=== PATIENT | female | born 1950 | race African-American/Black ===

== ENCOUNTER 2018-02-22 04:17 | Emergency (ER) | payer MEDICAID ==
[~2018-02-22] VITALS: Ht 167.6 cm; Wt 121.0 kg
[~2018-02-22 04:17] MED LIST: CIPRO500 MG PO; DOESN'T KNOW MEDS; HYCOTUSS EXP1 ML OR; LASIX40 MG OR; LORTAB 5 OR; METFORMIN500 MG PO; PROVENTIL HFA IN; ROBITUSSIN AC10 ML PO; ZITHROMAX500 MG OR
[2018-02-22] MEDS ORDERED: LASIX20 MG PO (04:48)
[2018-02-22 04:54] VITALS: BP 158/82
== END 2018-02-22 05:00 | disposition home or self-care (01) ==
LOC: ED 04:17
DX: I10 Essential (primary) hypertension (principal); E11.9 Type 2 diabetes mellitus without complications; Z79.84 Long term (current) use of oral hypoglycemic drugs

== ENCOUNTER 2018-03-28 14:04 | Emergency (ER) | payer MEDICARE, MEDICAID ==
[~2018-03-28] VITALS: Ht 167.6 cm; Wt 130.4 kg
[~2018-03-28 14:04] MED LIST changes: +LASIX20 MG PO
[2018-03-28 14:32] LABS: HEMATOCRIT 39.2 % (37.0-47.0); HEMOGLOBIN 12.1 g/dl (12.0-16.0); IMMATURE GRANULOCYTES 0.8 % (0.0-5.0); MEAN CELL VOLUME 92.7 fL CALC (80.0-100.0); MEAN CORPUSCULAR HGB 28.6 pG CALC (26.0-32.0); MEAN CORPUSCULAR HGB CONC 30.9 g/L CALC (32.0-36.0); NEUT# 5.85 thou/uL (2.00-7.15); RED BLOOD COUNT 4.23 mill/uL (4.20-5.60); RED CELL DISTRI WIDTH 13.1 % (11.5-15.5)
[2018-03-28 15:05] LABS: ALBUMIN 3.8 g/dL (3.2-5.0); ALKALINE PHOSPHATASE 94 u/l (38-126); ANION GAP 11 (6-22 (CALC)); BILIRUBIN, TOTAL 0.5 mg/dL (0.0-1.4); BUN 21 mg/dL (8-23); BUN/CREATININE RATIO 29 (12-20 (CALC)); CARBON DIOXIDE 29 mmol/l (22-30); CHLORIDE 106 mmol/l (95-108); CREATININE 0.7 mg/dL (0.5-1.0); GFR > 60 ML/MIN (>=60 (CALC)); GFR FOR AFR.AMER. > 60 ML/MIN (>=60 (CALC)); SODIUM 142 mmol/l (137-146); TOTAL PROTEIN 7.1 g/dL (6.3-8.2)
[2018-03-28 15:11] LABS: SGOT/AST 44 u/l (9-36)
[2018-03-28 15:23] LABS: MYOGLOBIN 3 ng/mL (0 - 62)
[2018-03-28] MEDS ORDERED: POTASSIUM CHLO10 ME4 PO (15:43)
[2018-03-28] MEDS ORDERED: GABAPENTIN100 MG PO (15:44)
[2018-03-28] MEDS ORDERED: PROAIR HFA108 MCG/AC IN (15:45)
[2018-03-28] MEDS ORDERED: SYMBICORT1 AE1 IN (15:45)
[2018-03-28] MEDS ORDERED: LOSARTAN POT50 MG PO (15:46)
[2018-03-28] MEDS ORDERED: LOPRESSOR25 MG PO (15:47)
[2018-03-28] MEDS ORDERED: GLYBURIDE5 M1 PO (15:47)
[2018-03-28] MEDS ORDERED: METHOCARBAM500 MG PO (15:48)
[2018-03-28] MEDS ORDERED: DORZOLAMIDE2 % OU (15:49)
[2018-03-28 16:05] LABS: URINE BILIRUBIN - DIPSTICK NEGATIVE (NEGATIVE); URINE BLOOD DIPSTICK TRACE-INTACT (NEGATIVE); URINE COLOR YELLOW; URINE GLUCOSE - DIPSTICK 250 mg/dL (NEGATIVE); URINE KETONE NEGATIVE (NEGATIVE); URINE LEUK ESTERASE NEGATIVE (NEGATIVE); URINE NITRITE - DIPSTICK NEGATIVE (Negative); URINE PH 5.5 (4.5-8.0); URINE PROTEIN - DIPSTICK TRACE mg/dL (NEG-TRACE); URINE SPECIFIC GRAVITY >=1.030; URINE UROBILINOGEN - DIPSTICK 0.2 E.U./dL (0.2)
[2018-03-28 16:27] VITALS: BP 166/92
== END 2018-03-28 16:27 | disposition short-term general hospital (02) ==
LOC: ED 14:04
PROVIDERS: Emergency Medicine
DX: I11.0 Hypertensive heart disease with heart failure (principal); I50.9 Heart failure, unspecified; J44.1 Chronic obstructive pulmonary disease with (acute) exacerbation; R74.8 Abnormal levels of other serum enzymes; E11.9 Type 2 diabetes mellitus without complications

== ENCOUNTER → 2018-05-07 | Outpatient (REF) | payer MEDICARE, MEDICAID ==
[~2018-05-07] MED LIST changes: +DORZOLAMIDE2 % OU; +GABAPENTIN100 MG PO; +GLYBURIDE5 M1 PO; +LOPRESSOR25 MG PO; +LOSARTAN POT50 MG PO; +METHOCARBAM500 MG PO; +POTASSIUM CHLO10 ME4 PO; +PROAIR HFA108 MCG/AC IN; +SYMBICORT1 AE1 IN
[2018-05-07 11:27] LABS: BUN 20 mg/dL (8-23); CARBON DIOXIDE 28 mmol/l (22-30); CHLORIDE 103 mmol/l (95-108); CREATININE 0.7 mg/dL (0.5-1.0); GFR > 60 ML/MIN (>=60 (CALC)); GFR FOR AFR.AMER. > 60 ML/MIN (>=60 (CALC)); POTASSIUM 3.9 mmol/l (3.5-5.1); SODIUM 142 mmol/l (137-146)
== END | disposition home or self-care (01) ==
LOC: LAB 10:00
PROVIDERS: ATTEND Nurse Practitioner
DX: I50.22 Chronic systolic (congestive) heart failure (principal); Z51.81 Encounter for therapeutic drug level monitoring

== ENCOUNTER 2018-09-10 12:51 | Emergency (ER) | payer MEDICARE, MEDICAID ==
[~2018-09-10] VITALS: Ht 167.6 cm; Wt 100.0 kg
[~2018-09-10 12:51] MED LIST changes: -GABAPENTIN100 MG PO; +NEURONTIN300 MG PO
[2018-09-10] MEDS ORDERED: ASPIRIN81 MG PO (13:58)
[2018-09-10] MEDS ORDERED: CARVEDILOL6.25 MG PO (13:58)
[2018-09-10] MEDS ORDERED: ENTRESTO 24-261 TAB PO (13:59)
[2018-09-10] MEDS ORDERED: ENTRESTO 49-511 TAB PO (13:59)
[2018-09-10] MEDS ORDERED: OZEMPIC2 MG/1.5 M SC (14:01)
[2018-09-10 14:16] LABS: HEMATOCRIT 43.5 % (37.0-47.0); HEMOGLOBIN 13.4 g/dl (12.0-16.0); IMMATURE GRANULOCYTES 0.6 % (0.0-5.0); MEAN CORPUSCULAR HGB 28.9 pG CALC (26.0-32.0); MEAN CORPUSCULAR HGB CONC 30.8 g/L CALC (32.0-36.0); NEUT# 4.27 thou/uL (2.00-7.15); RED BLOOD COUNT 4.63 mill/uL (4.20-5.60); RED CELL DISTRI WIDTH 12.2 % (11.5-15.5)
[2018-09-10 14:38] LABS: ALBUMIN 3.7 g/dL (3.2-5.0); ALKALINE PHOSPHATASE 95 u/l (38-126); ANION GAP 12 (6-22 (CALC)); BILIRUBIN, TOTAL 0.4 mg/dL (0.0-1.4); BUN 16 mg/dL (8-23); BUN/CREATININE RATIO 21 (12-20 (CALC)); CARBON DIOXIDE 26 mmol/l (22-30); CHLORIDE 104 mmol/l (95-108); CREATININE 0.7 mg/dL (0.5-1.0); GFR > 60 ML/MIN (>=60 (CALC)); GFR FOR AFR.AMER. > 60 ML/MIN (>=60 (CALC)); MAGNESIUM 1.8 mg/dL (1.6-2.3); SGOT/AST 12 u/l (9-36); SODIUM 139 mmol/l (137-146); TOTAL PROTEIN 6.7 g/dL (6.3-8.2)
[2018-09-10] MEDS ORDERED: SOMA350 MG PO (15:07)
[2018-09-10 15:13] VITALS: BP 140/80
== END 2018-09-10 15:20 | disposition home or self-care (01) ==
LOC: ED 12:51
PROVIDERS: Emergency Medicine
DX: M62.838 Other muscle spasm (principal); E11.9 Type 2 diabetes mellitus without complications; I10 Essential (primary) hypertension

== ENCOUNTER 2021-03-15 17:36 | Emergency (ER) | payer MEDICARE, MEDICAID ==
[~2021-03-15] VITALS: Ht 167.6 cm; Wt 127.2 kg
[~2021-03-15 17:36] MED LIST changes: +ASPIRIN81 MG PO; +CARVEDILOL6.25 MG PO; +ENTRESTO 24-261 TAB PO; +ENTRESTO 49-511 TAB PO; +OZEMPIC2 MG/1.5 M SC; +SOMA350 MG PO
[2021-03-15 19:07] LABS: HEMATOCRIT 46.3 % (37.0-47.0); HEMOGLOBIN 14.4 g/dl (12.0-16.0); IMMATURE GRANULOCYTES 0.1 % (0.0-5.0); MEAN CELL VOLUME 95.1 fL CALC (80.0-100.0); MEAN CORPUSCULAR HGB 29.6 pG CALC (26.0-32.0); MEAN CORPUSCULAR HGB CONC 31.1 g/dL CAL (32.0-36.0); NEUT# 6.03 thou/uL (2.00-7.15); RED BLOOD COUNT 4.87 mill/uL (4.20-5.60); RED CELL DISTRI WIDTH 12.2 % (11.5-15.5)
[2021-03-15 19:17] LABS: ALBUMIN 3.4 g/dL (3.2-5.0); ALKALINE PHOSPHATASE 72 u/l (38-126); BUN 12 mg/dL (8-23); BUN/CREATININE RATIO 11 (12-20 (CALC)); CHLORIDE 96 mmol/l (95-108); GFR 55 ML/MIN (>=60 (CALC)); GFR FOR AFR.AMER. > 60 ML/MIN (>=60 (CALC)); POTASSIUM 3.4 mmol/l (3.5-5.1); SODIUM 134 mmol/l (137-146); TOTAL PROTEIN 7.4 g/dL (6.3-8.2)
[2021-03-15 19:24] LABS: ANION GAP 7 (6-22 (CALC)); BILIRUBIN, TOTAL 0.6 mg/dL (0.0-1.4); CARBON DIOXIDE 34 mmol/l (22-30); SGOT/AST 35 u/l (9-36)
[2021-03-15 20:37] VITALS: BP 124/60
== END 2021-03-15 20:40 | disposition short-term general hospital (02) ==
LOC: ED 17:36
PROVIDERS: Family Medicine
DX: U07.1 COVID-19 (principal); J12.82 Pneumonia due to coronavirus disease 2019; R79.89 Other specified abnormal findings of blood chemistry; I11.0 Hypertensive heart disease with heart failure; I50.9 Heart failure, unspecified; E11.9 Type 2 diabetes mellitus without complications; J44.9 Chronic obstructive pulmonary disease, unspecified